=== PATIENT | male | born 2000 | race Caucasian/White ===

== ENCOUNTER 2024-02-17 07:06 | Day surgery (SDC) | payer OTHER ==
[2024-02-17] MEDS: LACTATED RINGERS 1,000 ML IV ONE (07:20)
[2024-02-17] MEDS ORDERED: LIDOCAINE-MPF 1% 30 ML VIAL ONE (07:51)
--- NOTE | 2024-02-17 08:14 | ANESTHESIA ---
Pre-Anesthesia VS, & Labs - Diagnosis desires sterilization - Procedure vasectomy Vital Signs: Temp Pulse Resp BP Pulse Ox O2 Flow Rate 36.6 C 82 22 136/65 H 99 02/17/24 07:26 02/17/24 07:26 02/17/24 07:26 02/17/24 07:26 02/17/24 07:26 Height: 5 ft 8 in Weight (kg): 82.5 kg Body Mass Index: 27.6 BMI Classification: Overweight - NPO >8 hours Home Medications and Allergies Home Medications: Ambulatory Orders No Known Home Medications 02/10/24 No Known Home Medications 02/10/24 Allergies/Adverse Reactions: Allergies Allergy/AdvReac Type Severity Reaction Status Date / Time No Known Drug Allergies Allergy Verified 02/17/24 07:35 Anes History & Medical History - Anesthetic History Anesthesia Complications: reports: No previous complications Family history of Anesthesia Complications: Denies Family history of Malignant Hyperthermia: Denies - Medical History Cardiovascular: reports: None Pulmonary: reports: None Gastrointestinal: reports: None Urinary: reports: None Musculoskeletal: reports: None Endocrine/Autoimmune: reports: None Skin: reports: None Psychosocial: reports: Alcohol Exam General: Alert, Oriented x3, Cooperative Dental: WNL Mouth Openin Fingerbreadth Neck Mobility: Normal Mallampati classification: II Thyromental Distance: 4-6 cm Respiratory: Lungs clear Cardiovascular: Regular rate Plan Anesthesia Type: General, Total IV Consent for Procedure(s) Verified and Reviewed: Yes Code Status: Attempt Resuscitation ASA classification: 2-Mild systemic disease Is this case an emergency?: No
[2024-02-17] MEDS ORDERED: MIDAZOLAM 2 MG/2 ML VIAL ONE (08:16)
[2024-02-17] MEDS ORDERED: LIDOCAINE-MPF 2% 5 ML VIAL ONE (08:16)
[2024-02-17] MEDS ORDERED: PROPOFOL 500 MG/50 ML 500 MG/50 ML VIAL ONE (08:16)
[2024-02-17] MEDS ORDERED: fentaNYL 100 MCG/2 ML VIAL ONE (08:24)
[2024-02-17] MEDS ORDERED: ONDANSETRON 4 MG/2 ML VIAL ONE (08:32)
[2024-02-17] MEDS: LIDOCAINE-MPF 1% 30 ML VIAL SUBQ ONE (08:40)
--- NOTE | 2024-02-17 08:51 | Discharge Plan ---
Discharge Plan Problem Reviewed?: Yes Disposition: Home, Self Care Condition: Good Diet: Regular Activity Restrictions: Additional Comments (as instructed) Shower Restrictions: No Driving Restrictions: No Instruction Topics: Vasectomy No Scalpel No Smoking: If you smoke, Please STOP! Call for help. Follow-up with: MITCH VILLA DO [Primary Care Provider] -
--- NOTE | 2024-02-17 08:52 | OPERATIVE REPORT ---
Operative Report - General Procedure Date: 02/17/24 Planned Procedure: Bilateral vasectomy Pre-Op Diagnosis: Elective sterilization Procedure Performed: Bilateral no scalpel Vasectomy Post Op Diagnosis: Elective sterilization - Procedure Note Primary Surgeon: Damián Anesthesia Provider: FER Ruiz Anesthesia Technique: Moderate sedation Estimated Blood Loss (mL): 0 Findings: Routine bilateral vasectomy Complications: none - Other Other Information/Narrative: After informed consent obtained patient brought to the OR and laid in supine position. The patient was anesthetized per anesthesia protocols and then prepped and draped in usual sterile fashion. A formal timeout was performed reconfirming the patient, procedure and laterality He is vas deferens identified through his right hemiscrotum. 1% lidocaine was used as local. Using a sharp mosquito is scrotal tissue was dissected away and his vas sheath was grasped using a ring clamp. This was sharply incised and the vas was identified and pulled out. It was clamped on both sides and the intervening 1 cm segment was cauterized away. The ends were cauterized as well. The ends were suture-ligated with chromic suture and then the distal end was buried using a fascial interposition stitch using 3-0 chromic suture. There was no bleeding. His skin was closed using a 3-0 chromic horizontal mattress stitch. An identical procedure performed on the left side. Band-Aids were placed.
[2024-02-17] MEDS: LACTATED RINGERS 300 ML IV ONE (09:15)
[2024-02-17 09:20] VITALS: O2SAT 100
[2024-02-17] MEDS ORDERED: HYDROcod/ACETAM 5/325 MG TABLET ONE (09:31)
[2024-02-17] MEDS: HYDROcod/ACETAM 5/325 MG TABLET PO PRN (09:32)
[2024-02-17 09:51] VITALS: BP 112/64
--- NOTE | 2024-02-17 16:03 | ANESTHESIA POST OP EVALUATION ---
Anesthesia Post Eval - Post Anesthesia Eval Vitals: Last Vital Signs Temp 36.2 C L 02/17/24 09:41 Pulse 69 02/17/24 09:41 Resp 12 02/17/24 09:41 BP 112/64 02/17/24 09:41 Pulse Ox 100 02/17/24 09:41 O2 Flow Rate CV Function Including HR & BP: Stable Pain Control: Satisfactory Nausea & Vomiting: Negative Mental Status: Baseline Respiratory Status: Airway Patent Hydration Status: Satisfactory Anesthesia Complications: None
== END 2024-02-17 07:07 | disposition home or self-care (01) ==
LOC: SDS 07:06
PROVIDERS: ATTEND Urology
DX: Z30.2 Encounter for sterilization (principal)
CPT/HCPCS: 55250; A9270; J7120

== ENCOUNTER 2024-05-12 21:35 | Emergency (ER) | payer OTHER ==
[2024-05-12] MEDS: ALBUTEROL 1 PUFF INH STA (22:35)
--- NOTE | 2024-05-12 22:58 | ED Physician Documentation ---
PD HPI URI - Stated complaint Stated Complaint: SOA,FEVER - Chief complaint Chief Complaint: Resp - History obtained from History obtained from: Patient - History of Present Illness Timing - onset: How many days ago (4) Timing duration: Days (4) Timing details: Gradual onset Associated symptoms: Fever, Nasal congestion, Rhinorrhea, Dry cough Recently seen: Not recently seen - Additional information Additional information: 23-year-old male with fever, cough, body aches and nasal congestion. Has been around others who have tested positive for COVID. He states he is having some difficulty taking a full breath as well. Denies any lung issues in the past. Does not smoke or vape. Review of Systems Constitutional: reports: Fever, Chills Nose: reports: Rhinorrhea / runny nose, Congestion Throat: denies: Sore throat Cardiac: denies: Chest pain / pressure Respiratory: reports: Dyspnea, Cough GI: denies: Vomiting, Diarrhea : denies: Dysuria Skin: denies: Rash Musculoskeletal: denies: Neck pain, Back pain Neurologic: denies: Headache PD PAST MEDICAL HISTORY - Past Medical History Past Medical History: Yes Cardiovascular: None Respiratory: None Neuro: None Endocrine/Autoimmune: None GI: None : None HEENT: Chronic hearing loss, Other Psych: None Musculoskeletal: None Derm: None - Past Surgical History Past Surgical History: No - Present Medications Home Medications: Ambulatory Orders Medication Instructions Recorded Confirmed Albuterol Sulf [Ventolin Hfa 1 - 2 puffs INH Q4HR PRN #1 each 05/12/24 Inhaler] Benzonatate [Tessalon] 200 mg PO TID PRN #30 cap 05/12/24 - Allergies Allergies/Adverse Reactions: Allergies Allergy/AdvReac Type Severity Reaction Status Date / Time No Known Drug Allergies Allergy Verified 05/12/24 21:47 - Social History Does the pt smoke?: No Smoking Status: Never smoker Does the pt drink ETOH?: No Does the pt have substance abuse?: No - Immunizations Immunizations are current?: Yes - POLST Patient has POLST: No PD ED PE NORMAL - Vitals Vital signs reviewed: Yes - General General: Alert and oriented X 3, No acute distress - HEENT HEENT: PERRL, Moist mucous membranes - Neck Neck: Supple, no meningeal sign - Cardiac Cardiac: RRR, Strong equal pulses - Respiratory Respiratory: No respiratory distress, Clear bilaterally - Abdomen Abdomen: Soft, Non tender, Non distended - Derm Derm: Warm and dry, No rash - Extremities Extremities: No edema - Neuro Neuro: Alert and oriented X 3 - Psych Psych: Normal mood, Normal affect Results - Vitals Vitals: Vital Signs - 24 hr 05/12/24 05/12/24 05/12/24 21:39 22:35 23:34 Temperature 37.4 C 36.5 C Heart Rate 107 H 107 H 74 Respiratory 15 16 16 Rate Blood Pressure 131/72 H 128/68 O2 Saturation 97 98 Oxygen O2 Source Room air - Labs Labs: Laboratory Tests 05/12/24 21:40 Nasal Adenovirus (PCR) NOT DETECTED Nasal B. parapertussis DNA (PCR) NOT DETECTED Nasal Coronavir 229E PCR NOT DETECTED Nasal Coronavir HKU1 PCR NOT DETECTED Nasal Coronavir NL63 PCR NOT DETECTED Nasal Coronavir OC43 PCR NOT DETECTED Nasal Enterovir/Rhinovir PCR NOT DETECTED Nasal Influenza B PCR NOT DETECTED Nasal Influenza A PCR NOT DETECTED Nasal Parainfluen 1 PCR NOT DETECTED Nasal Parainfluen 2 PCR NOT DETECTED Nasal Parainfluen 3 PCR NOT DETECTED Nasal Parainfluen 4 PCR NOT DETECTED Nasal RSV (PCR) NOT DETECTED Nasal B.pertussis DNA PCR NOT DETECTED Nasal C.pneumoniae (PCR) NOT DETECTED Armen Human Metapneumo PCR NOT DETECTED Nasal M.pneumoniae (PCR) NOT DETECTED Nasal SARS-CoV-2 (PCR) NOT DETECTED - Rads (name of study) cxr Relevant Findings:: Final report received, See rad report PD Medical Decision Making - ED course Complexity details: reviewed results, re-evaluated patient, considered differential, d/w patient ED course: Patient feels better after albuterol treatment in the emergency department. Feels like his breathing is easier. No acute findings on chest x-ray. No acute findings on respiratory PCR. No hypoxia or respiratory distress. Patient is well-appearing, nontoxic. We will continue supportive care. Appears to be a viral upper respiratory illness. Patient counseled regarding signs and symptoms for which I believe and urgent re-evaluation would be necessary. Patient with good understanding of and agreement to plan and is comfortable going home at this time This document was made in part using voice recognition software. While efforts are made to proofread this document, sound alike and grammatical errors may occur. Departure - Departure Disposition: 01 Home, Self Care Clinical Impression: Upper respiratory tract infection Qualifiers: URI type: unspecified viral URI Qualified Code(s): J06.9 - Acute upper respiratory infection, unspecified Condition: Good Instructions: ED Viral Syndrome Follow-Up: your,doctor as needed [Other] Prescriptions: Albuterol Sulf [Ventolin Hfa Inhaler] 1 - 2 puffs INH Q4HR PRN #1 each PRN Reason: Shortness Of Air/Wheezing Benzonatate [Tessalon] 200 mg PO TID PRN #30 cap PRN Reason: Cough Comments: Your chest x-ray does not show any evidence of pneumonia. Your respiratory panel is negative for COVID, influenza, etc. Your prescriptions were sent to [facility]. Please follow-up with your doctor for further care and return if you worsen. Forms: PCP List Discharge Date/Time: 05/12/24 23:34
[2024-05-12 23:08] LABS: B. PARAPERTUSSIS- RESP PCR PAN NOT DETECTED; B. PERTUSSIS- RESP PCR PANEL NOT DETECTED; C. PNEUMONIAE- RESP PCR PANEL NOT DETECTED; CORONAVIRUS 229E-RESP PCR NOT DETECTED; CORONAVIRUS HKU1-RESP PCR NOT DETECTED; CORONAVIRUS NL63-RESP PCR NOT DETECTED; CORONAVIRUS OC43-RESP PCR NOT DETECTED; HUMAN METAPNEUMOVIRUS NOT DETECTED; INFLUENZA A- RESP PCR PANEL NOT DETECTED; INFLUENZA B - RESP PCR PANEL NOT DETECTED; M. PNEUMONIAE- RESP PCR PANEL NOT DETECTED; PARAINFLUENZA VIRUS 1 NOT DETECTED; PARAINFLUENZA VIRUS 2 NOT DETECTED; PARAINFLUENZA VIRUS 3 NOT DETECTED; PARAINFLUENZA VIRUS 4 NOT DETECTED; RHINOVIRUS/ENTEROVIRUS NOT DETECTED; RSV- RESP PCR PANEL NOT DETECTED; SARS-CoV-2 -RESP PCR PANEL NOT DETECTED
--- NOTE | 2024-05-12 23:29 | XRAY Report ---
PROCEDURE: Chest 1V INDICATIONS: cough TECHNIQUE: One view of the chest was acquired. COMPARISON: None. FINDINGS: Surgical changes and devices: None. Lungs and pleura: No pleural effusions or pneumothorax. Lungs are clear. Mediastinum: Mediastinal contours appear normal. Heart size is normal. Bones and chest wall: No suspicious bony lesions. Overlying soft tissues appear unremarkable. IMPRESSION: No acute cardiopulmonary process. Reviewed by: Thai Sandy MD on 05/12/2024 11:28 PM PDT Approved by: Thai Sandy MD on 05/12/2024 11:28 PM PDT Station ID: [id number]
[2024-05-12 23:37] VITALS: BP 128/68; O2SAT 98
== END 2024-05-12 23:34 | disposition home or self-care (01) ==
LOC: ED 21:35
DX: J06.9 Acute upper respiratory infection, unspecified (principal)
CPT/HCPCS: 87633; 94640; 94664; 99283

== ENCOUNTER 2024-05-14 20:33 | Emergency (ER) | payer OTHER ==
--- NOTE | 2024-05-14 21:04 | ED Physician Documentation ---
History of Present Illness - Stated complaint Stated Complaint: FEVER/SOA - Chief complaint Chief Complaint: General - Additonal information Additional information: Patient is a 23-year-old male with no significant past medical history. Patient was seen here 2 days ago diagnosed with viral URI symptoms. Patient was given albuterol inhaler and Tessalon Perles. He was instructed to take Tylenol and ibuprofen and switching the medications every 4 hours. Patient has been compliant with doing these medications but continues to have worsening symptoms. He feels more productive cough with some streaks of blood in it. He also reports neck pain that started last evening. He notes it feels stiff with movement. He notes highest temperature was 103 when he seen in the ER 2 days ago. He denies any chest pain. He denies any significant shortness of breath. He denies any smoking or vaping history. He had an episode of vomiting last night but none this morning. He has been trying to drink lots of fluids and take medications as prescribed without relief. PD PAST MEDICAL HISTORY - Past Medical History Past Medical History: No Cardiovascular: None Respiratory: None Neuro: None Endocrine/Autoimmune: None GI: None : None HEENT: Chronic hearing loss, Other Psych: None Musculoskeletal: None Derm: None - Past Surgical History Past Surgical History: No - Present Medications Home Medications: Ambulatory Orders Medication Instructions Recorded Confirmed Albuterol Sulf [Ventolin Hfa 1 - 2 puffs INH Q4HR PRN #1 each 05/12/24 05/14/24 Inhaler] Benzonatate [Tessalon] 200 mg PO TID PRN #30 cap 05/12/24 05/14/24 - Allergies Allergies/Adverse Reactions: Allergies Allergy/AdvReac Type Severity Reaction Status Date / Time No Known Drug Allergies Allergy Verified 05/14/24 20:40 - Social History Does the pt smoke?: No Smoking Status: Never smoker Does the pt drink ETOH?: No Does the pt have substance abuse?: No - Immunizations Immunizations are current?: Yes - POLST Patient has POLST: No PD ED PE NORMAL - Vitals Vital signs reviewed: Yes - General General: Alert and oriented X 3 - HEENT HEENT: Atraumatic, PERRL, EOMI, Ears normal, Moist mucous membranes, Pharynx benign - Neck Neck: Other (No palpable adenopathy there is reproducible pain with movement of neck but no obvious stiffness.) - Cardiac Cardiac: RRR, No murmur, No gallop, No rub - Respiratory Respiratory: No respiratory distress, Clear bilaterally - Abdomen Abdomen: Normal bowel sounds, Soft - Back Back: No CVA TTP - Derm Derm: Normal color, No rash - Neuro Neuro: Alert and oriented X 3 Eye Opening: Spontaneous Motor: Obeys Commands Verbal: Oriented GCS Score: 15 Results - Vitals Vitals: Vital Signs - 24 hr 05/14/24 05/14/24 05/14/24 20:40 21:05 21:30 Temperature 38.7 C H 38.2 C H 38.2 C H Heart Rate 120 H 120 H 120 H Respiratory 24 20 25 H Rate Blood Pressure 130/71 114/60 122/77 O2 Saturation 99 97 100 05/14/24 05/14/24 21:47 22:02 Temperature 38.2 C H Heart Rate 123 H Respiratory 20 Rate Blood Pressure 103/58 L O2 Saturation 99 Oxygen O2 Source Room air - Labs Labs: Laboratory Tests 05/14/24 05/14/24 05/14/24 20:45 21:25 21:25 WBC 10.6 RBC 5.19 Hgb 14.4 Hct 42.5 MCV 81.9 MCH 27.7 MCHC 33.9 RDW 13.2 Plt Count 177 MPV 8.8 Neut # (Auto) 8.6 H Lymph # (Auto) 0.8 L Luna # (Auto) 1.1 H Eos # (Auto) 0.0 Baso # (Auto) 0.0 Absolute Nucleated RBC 0.00 Nucleated RBC % 0.0 Sodium 135 Potassium 3.9 Chloride 99 L Carbon Dioxide 29 Anion Gap 7.0 BUN 14 Creatinine 0.9 Estimated GFR (MDRD) 105 Glucose 126 H Lactic Acid Calcium 9.4 Total Bilirubin 0.6 AST 22 ALT 21 Alkaline Phosphatase 88 Total Protein 6.8 Albumin 4.6 Globulin 2.2 Albumin/Globulin Ratio 2.1 Procalcitonin Immunoas Nasal Adenovirus (PCR) NOT DETECTED Nasal B. parapertussis DNA (PCR) NOT DETECTED Nasal Coronavir 229E PCR NOT DETECTED Nasal Coronavir HKU1 PCR NOT DETECTED Nasal Coronavir NL63 PCR NOT DETECTED Nasal Coronavir OC43 PCR NOT DETECTED Nasal Enterovir/Rhinovir PCR NOT DETECTED Nasal Influenza B PCR NOT DETECTED Nasal Influenza A PCR NOT DETECTED Nasal Parainfluen 1 PCR NOT DETECTED Nasal Parainfluen 2 PCR NOT DETECTED Nasal Parainfluen 3 PCR NOT DETECTED Nasal Parainfluen 4 PCR NOT DETECTED Nasal RSV (PCR) NOT DETECTED Nasal B.pertussis DNA PCR NOT DETECTED Nasal C.pneumoniae (PCR) NOT DETECTED Armen Human Metapneumo PCR NOT DETECTED Nasal M.pneumoniae (PCR) NOT DETECTED Nasal SARS-CoV-2 (PCR) NOT DETECTED 05/14/24 05/14/24 21:25 21:25 WBC RBC Hgb Hct MCV MCH MCHC RDW Plt Count MPV Neut # (Auto) Lymph # (Auto) Luna # (Auto) Eos # (Auto) Baso # (Auto) Absolute Nucleated RBC Nucleated RBC % Sodium Potassium Chloride Carbon Dioxide Anion Gap BUN Creatinine Estimated GFR (MDRD) Glucose Lactic Acid 1.2 Calcium Total Bilirubin AST ALT Alkaline Phosphatase Total Protein Albumin Globulin Albumin/Globulin Ratio Procalcitonin Immunoas 2.57 H* Nasal Adenovirus (PCR) Nasal B. parapertussis DNA (PCR) Nasal Coronavir 229E PCR Nasal Coronavir HKU1 PCR Nasal Coronavir NL63 PCR Nasal Coronavir OC43 PCR Nasal Enterovir/Rhinovir PCR Nasal Influenza B PCR Nasal Influenza A PCR Nasal Parainfluen 1 PCR Nasal Parainfluen 2 PCR Nasal Parainfluen 3 PCR Nasal Parainfluen 4 PCR Nasal RSV (PCR) Nasal B.pertussis DNA PCR Nasal C.pneumoniae (PCR) Armen Human Metapneumo PCR Nasal M.pneumoniae (PCR) Nasal SARS-CoV-2 (PCR) Procedures - Lumbar Puncture - Major Position: Sitting Location: L3-L4 Anesthesia: Local lidocaine CSF: Clear Other: Sterile prep and drape, Patient tolerated well (No acute findings.), No complications PD Medical Decision Making - ED course Complexity details: reviewed old records, reviewed results ED course: Patient is a 23-year-old male presenting to the emergency department with viral URI symptoms going on for about a week now. He was seen 2 days ago tested negative for COVID flu RSV and respiratory panel. He continues to have persis tent symptoms of cough, fevers despite taking Tylenol, ibuprofen, albuterol inhaler and Tessalon Perles. Patient has no significant leukocytosis on arrival his chest x-ray did return with left-sided basilar opacities. Patient on arrival was notably febrile and tachycardic with soft blood pressures. IV fluids were ordered as well as ibuprofen on patient's arrival. Procalcitonin pending and lactic acid is negative. Procalcitonin is elevated at 2.5. Patient had lumbar puncture performed here in the ED. Patient tolerated the procedure well, see notes above.Patient started on second dose of IV fluids for persistent tachycardia additionally with IV antibiotics ceftriaxone and azithromycin after blood cultures were drawn and pending. Pending results here in the ED. Patient signed out to Dr. Diaz. Departure - Departure Forms: PCP List
[2024-05-14] MEDS: IBUPROFEN 800 MG TABLET PO STA (21:17)
[2024-05-14] MEDS: SODIUM CHLORIDE 0.9% 1,000 ML IV STA ×2 (21:27→23:05)
[2024-05-14 21:30] LABS: BASOPHILS % (AUTO) 0.3 %; EOSINOPHILS % (AUTO) 0.3 %; HCT - HEMATOCRIT 42.5 % (42.0-52.0); HGB - HEMOGLOBIN 14.4 g/dL (14.0-18.0); LYMPHOCYTES # (AUTO) 0.8 10^3/uL (1.5-3.5); LYMPHOCYTES % (AUTO) 7.4 %; MEAN CORPUSCULAR HEMOGLOBIN 27.7 pg (27.0-31.0); MEAN CORPUSCULAR HGB CONC 33.9 g/dL (32.0-36.0); MEAN CORPUSCULAR VOLUME 81.9 fL (80.0-94.0); MEAN PLATELET VOLUME 8.8 fL (7.4-11.4); MONOCYTES # (AUTO) 1.1 10^3/uL (0.0-1.0); MONOCYTES % (AUTO) 9.9 %; NEUTROPHILS # (AUTO) 8.6 10^3/uL (1.5-6.6); NEUTROPHILS % (AUTO) 81.6 %; PLT - PLATELET COUNT 177 10^3/uL (130-450); RED BLOOD COUNT 5.19 10^6/uL (4.70-6.10); RED CELL DISTRIBUTION WIDTH 13.2 % (12.0-15.0); WHITE BLOOD COUNT 10.6 x10^3/uL (4.8-10.8)
[2024-05-14 21:40] LABS: CORONAVIRUS 229E-RESP PCR NOT DETECTED; CORONAVIRUS HKU1-RESP PCR NOT DETECTED; CORONAVIRUS NL63-RESP PCR NOT DETECTED; CORONAVIRUS OC43-RESP PCR NOT DETECTED; HUMAN METAPNEUMOVIRUS NOT DETECTED; INFLUENZA A- RESP PCR PANEL NOT DETECTED; RHINOVIRUS/ENTEROVIRUS NOT DETECTED; SARS-CoV-2 -RESP PCR PANEL NOT DETECTED
[2024-05-14 21:41] LABS: B. PARAPERTUSSIS- RESP PCR PAN NOT DETECTED; B. PERTUSSIS- RESP PCR PANEL NOT DETECTED; C. PNEUMONIAE- RESP PCR PANEL NOT DETECTED; INFLUENZA B - RESP PCR PANEL NOT DETECTED; M. PNEUMONIAE- RESP PCR PANEL NOT DETECTED; PARAINFLUENZA VIRUS 1 NOT DETECTED; PARAINFLUENZA VIRUS 2 NOT DETECTED; PARAINFLUENZA VIRUS 3 NOT DETECTED; PARAINFLUENZA VIRUS 4 NOT DETECTED; RSV- RESP PCR PANEL NOT DETECTED
--- NOTE | 2024-05-14 21:42 | XRAY Report ---
PROCEDURE: Chest 1V INDICATIONS: chest pain TECHNIQUE: One view of the chest was acquired. COMPARISON: Chest radiograph 05/12/2024. FINDINGS: Surgical changes and devices: None. Lungs and pleura: Possible subtle silhouetting of the left hemidiaphragm. The right lung is clear. N o pleural effusion or pneumothorax. Mediastinum: Mediastinal contours appear normal. Heart size is normal. Bones and chest wall: No suspicious bony lesions. Overlying soft tissues appear unremarkable. IMPRESSION: Possible subtle left basilar opacities could represent atelectasis, aspiration, pneumonia. Reviewed by: Thai Sandy MD on 05/14/2024 9:41 PM PDT Approved by: Thai Sandy MD on 05/14/2024 9:41 PM PDT Station ID: [id number]
[2024-05-14 21:43] LABS: ALBUMIN 4.6 g/dL (3.2-5.5); ALBUMIN/GLOBULIN RATIO 2.1 (1.0-2.2); BILIRUBIN,TOTAL 0.6 mg/dL (0.2-1.0); CALCIUM 9.4 mg/dL (8.5-10.3); CREATININE 0.9 mg/dL (0.6-1.3); POTASSIUM 3.9 mmol/L (3.5-4.5); TOTAL PROTEIN 6.8 g/dL (6.4-8.9)
[2024-05-14] MEDS: lidocaine 1% 20 ML MDV SUBQ ONE (22:32)
[2024-05-14] MEDS: cefTRIAXone 1 GM VIAL IVP STA (23:34)
[2024-05-14] MEDS: AZITHROMYCIN INJ 500 MG in SODIUM CHLORIDE 0.9% 250 ML IV STA (23:35)
[2024-05-14 23:51] LABS: TOTAL PROTEIN,CSF 27 mg/dL (15-45)
[2024-05-14 23:53] LABS: CLARITY,CSF CLEAR (CLEAR); COLOR,CSF COLORLESS (COLORLESS); CSF TUBE # CSF TUBE# 3; CSF XANTHOCHROMIA ABSENT (ABSENT); RED BLOOD CELL,CSF 1 /mm^3 (0-1); WHITE BLOOD CELL,CSF 0 /mm^3 (0-5)
[2024-05-14 23:56] LABS: CSF - GLUCOSE 72 mg/dL (45-70)
[2024-05-15] MEDS: ONDANSETRON 4 MG/2 ML VIAL IVP STA
[2024-05-15] MEDS: MORPHINE 2 MG/ML CARPUJECT IVP STA (00:03)
--- NOTE | 2024-05-15 01:29 | ED Physician Documentation ---
ED Addendum - Addendum Addendum: 05/15/24 01:24 The patient was signed out to me at change of shift, pending remainder of symptomatic treatment and CSF results. The patient was originally seen by ANTONIA Daley after presenting to the emergency department aches and fevers. He had been found to have a small left lower lobe pneumonia on x-ray and antibiotics had been ordered for this. His white blood cell count and lactic acid levels had been normal. He did have some elevation of his procalcitonin. Ms. Ortiz was concerned for possible meningitis, due to the patient complaining of neck pain and stiffness. And requested my supervision as she performed a lumbar puncture. We did review sterile technique and I did supervise and affirm that she was indeed using sterile technique during the procedure. The patient was adequately locally anesthetized with lidocaine After landmarks identified and space was easily accessed with a single pass of the needle, with clear cerebral spinal fluid briskly dripping from the needle port. After the procedure, the patient was laid down flat for 30 minutes. His cerebrospinal fluid results were negative with the exception of a very slightly elevated glucose at 72 with a high end of normal being 70. He had negative white blood cells on Gram stain. Protein was also normal. The patient had received a total of 2 L of normal saline. He had been febrile and tachycardic, and was treated with ibuprofen while in the emergency department. On reevaluation after fluids and ibuprofen effect, the patient was found to be afebrile. At this point he was deemed stable for discharge home. I have sent a prescription for the remainder of his antibiotics to the pharmacy of his choice. He has been given a work note and is advised regarding return precautions to the emergency department. Final impression: 1. Left lower lobe pneumonia Disposition: Discharged home in stable and improved condition.
[2024-05-15] MEDS: ACETAMINOPHEN 325 MG TABLET PO STA (01:36)
[2024-05-15] MEDS: IBUPROFEN 800 MG TABLET PO STA (01:37)
[2024-05-15 01:43] VITALS: BP 103/59; O2SAT 94
== END 2024-05-15 01:40 | disposition home or self-care (01) ==
LOC: ED 20:33
DX: J18.9 Pneumonia, unspecified organism (principal); M54.2 Cervicalgia; M43.6 Torticollis; R73.9 Hyperglycemia, unspecified; Z20.818 Contact with and (suspected) exposure to other bacterial communicable diseases; Z20.822 Contact with and (suspected) exposure to COVID-19; Z20.828 Contact with and (suspected) exposure to other viral communicable diseases
CPT/HCPCS: 36415; 62270; 71045; 80053; 82945; 83605; 84145; 84157; 85025; 87040; 87070; 87205; 87633; 89051; 96361; 96365; 96375; 99284; 99285; A9270